=== PATIENT | female | born 1990 | race American Indian/Alaskan Native ===

== ENCOUNTER 2018-05-09 21:31 | Emergency (ER) | payer SELFPAY ==
[2018-05-09] MEDS ORDERED: NACL 0.9% 1000 ML 1,000 ML IV ONE (22:27)
[2018-05-09 23:06] LABS: Basophils % (Auto) 0.3 % (0.0-1.8); Eosinophils # (Auto) 0.1 K/mm3 (0.0-0.4); Eosinophils % (Auto) 0.7 % (0.0-4.3); Hematocrit 35.9 % (30.3-42.9); Hemoglobin 11.3 gm/dl (10.1-14.3); Lymphocytes # (Auto) 1.2 K/mm3 (1.2-5.4); Lymphocytes % (Auto) 14.4 % (13.4-35.0); Mean Corpuscular HGB Conc 31 % (30-34); Mean Corpuscular Volume 78 fl (79-97); Monocytes # (Auto) 0.6 K/mm3 (0.0-0.8); Monocytes % (Auto) 7.2 % (0.0-7.3); Platelet Count 324 K/mm3 (140-440); Red Blood Count 4.58 M/mm3 (3.65-5.03)
[2018-05-09 23:07] LABS: Mean Corpuscular Hemoglobin 25 pg (28-32)
[2018-05-09 23:24] LABS: Alanine Aminotransferase 13 units/L (7-56); Albumin 4.6 g/dL (3.9-5); BUN/Creatinine Ratio 25; Blood Urea Nitrogen 15 mg/dL (7-17); Calcium 9.6 mg/dL (8.4-10.2); Hemolysis Index 1
[2018-05-10] LABS: Bilirubin,Urine NEG (Negative); Blood,Urine SM (Negative); Color,Urine Yellow (Yellow); Mucus,Urine FEW /HPF; Protein,Urine <15 mg/dL mg/dL (Negative)
[2018-05-10 00:01] LABS: HCG Qualitative,Urine Negative (Negative); RBC,Urine < 1.0 /HPF (0.0-6.0)
[2018-05-10] MEDS ORDERED: NACL 0.9% 1000 ML 1,000 ML ONE (05:26)
[2018-05-10] MEDS ORDERED: SUBLIMAZE IV ONE (06:37)
--- NOTE | 2018-05-10 06:38 | Emergency Department Report ---
ED General Adult HPI - General Chief complaint: Pain General Stated complaint: FEVER,FLANK PAIN Time Seen by Provider: 05/10/18 06:29 Source: patient, RN notes reviewed Mode of arrival: Ambulatory Limitations: No Limitations - History of Present Illness Initial comments: This is a 27-year-old female who is not known to this provider previously. Patient visiting from [facility]. Reports a history of lupus. Reports she does not take any immune modulating medications. Patient reports a history of 12 or 13 lupus flares since August. Patient presents to the ER with what she describes as her typical lupus flare. She describes fever at home, for the past 3 days, reports a temperature max of 101.2, and describes lower paralumbar back pain, joint pain, and lower back pain. She denies severe headache, midline neck pain, chest pain, abdominal pain, dysuria. She has a dry cough, and a sore throat from coughing. She can't think of any obvious inciting factors for this particular lupus flare. She reports that this particular flare seems similar to prior episodes of lupus exacerbation. In the emergency room, the patient was given IV fluids, fentanyl, this improved her symptoms. -: Gradual, days(s) Location: back, left, right, upper extremity, lower extremity Radiation: back Severity scale (0 -10): 10 Quality: aching Improves with: medication Worsens with: movement Associated Symptoms: cough, fever/chills, loss of appetite, malaise, weakness. denies: confusion, chest pain, diaphoresis, headaches, nausea/vomiting, rash, seizure, shortness of breath, syncope - Related Data Previous Rx's Medication Instructions Recorded Last Taken Type Acetaminophen [Tylenol Arthritis] 650 mg PO Q6HR PRN #30 tablet.er 05/10/18 Unknown Rx Allergies Allergy/AdvReac Type Severity Reaction Status Date / Time clarithromycin [From Biaxin] Allergy Rash Verified 05/09/18 22:27 meloxicam [From Mobic] Allergy Rash Verified 05/09/18 22:27 walnut Allergy Swelling Verified 05/09/18 22:27 ice cream Allergy Swelling Uncoded 05/09/18 22:27 ED Review of Systems ROS: Stated complaint: FEVER,FLANK PAIN Other details as noted in HPI Comment: All other systems reviewed and negative ED Past Medical Hx - Past Medical History Previous Medical History?: Yes Additional medical history: Lupus. anemia - Surgical History Past Surgical History?: Yes Hx Cholecystectomy: Yes - Social History Smoking Status: Never Smoker Substance Use Type: None - Medications Home Medications: Home Medications Medication Instructions Recorded Confirmed Last Taken Type Acetaminophen [Tylenol Arthritis] 650 mg PO Q6HR PRN #30 tablet.er 05/10/18 Unknown Rx ED Physical Exam - General Limitations: No Limitations General appearance: alert, in no apparent distress - Head Head exam: Present: atraumatic, normocephalic - Eye Eye exam: Present: normal appearance, EOMI. Absent: nystagmus - ENT ENT exam: Present: normal exam, normal orophraynx, mucous membranes moist, normal external ear exam - Neck Neck exam: Present: normal inspection, full ROM. Absent: tenderness, meningismus - Respiratory Respiratory exam: Present: normal lung sounds bilaterally. Absent: respiratory distress - Cardiovascular Cardiovascular Exam: Present: regular rate, normal rhythm, normal heart sounds. Absent: bradycardia, tachycardia, irregular rhythm, systolic murmur, diastolic murmur, rubs, gallop - GI/Abdominal GI/Abdominal exam: Present: soft, normal bowel sounds. Absent: distended, guarding, rebound, rigid, pulsatile mass - Extremities Exam Extremities exam: Present: normal inspection, full ROM, normal capillary refill , other (2+ pulses noted in the bilateral upper, lower extremities. Compartments soft. No long bony tenderness. The pelvis is stable.). Absent: tenderness, pedal edema, joint swelling, calf tenderness - Back Exam Back exam: Present: normal inspection, full ROM, paraspinal tenderness. Absent : tenderness, CVA tenderness (R), CVA tenderness (L), vertebral tenderness - Neurological Exam Neurological exam: Present: alert, oriented X3, CN II-XII intact, normal gait, other (Extraocular movements intact. Tongue midline. No facial droop. Facial sensation intact to light touch in the V1, V2, V3 distribution bilaterally. 5 and 5 strength in 4 extremities.. Sensation is intact to light touch in 4 extremities.). Absent: motor sensory deficit - Psychiatric Psychiatric exam: Present: normal affect, normal mood - Skin Skin exam: Present: warm, dry, intact, normal color. Absent: rash ED Course Vital Signs 05/09/18 05/10/18 05/10/18 22:21 02:15 04:15 Temperature 99.6 F 98.3 F Pulse Rate 78 88 77 Respiratory 14 12 14 Rate Blood Pressure 117/73 113/77 Blood Pressure [Right] O2 Sat by Pulse 100 100 100 Oximetry 05/10/18 05/10/18 05/10/18 04:22 04:30 05:00 Temperature Pulse Rate 69 84 Respiratory 17 17 Rate Blood Pressure 109/79 111/64 Blood Pressure 111/70 [Right] O2 Sat by Pulse 99 100 Oximetry ED Medical Decision Making - Lab Data Result diagrams: 05/09/18 22:31 05/09/18 22:31 Vital Signs 05/09/18 05/10/18 05/10/18 22:21 02:15 04:15 Temperature 99.6 F 98.3 F Pulse Rate 78 88 77 Respiratory 14 12 14 Rate Blood Pressure 117/73 113/77 Blood Pressure [Right] O2 Sat by Pulse 100 100 100 Oximetry 05/10/18 05/10/18 05/10/18 04:22 04:30 05:00 Temperature Pulse Rate 69 84 Respiratory 17 17 Rate Blood Pressure 109/79 111/64 Blood Pressure 111/70 [Right] O2 Sat by Pulse 99 100 Oximetry 05/10/18 08:21 Temperature Pulse Rate Respiratory Rate Blood Pressure Blood Pressure [Right] O2 Sat by Pulse 98 Oximetry Lab Results 05/09/18 05/09/18 05/09/18 Range/Units 22:31 22:31 23:05 WBC 8.1 (4.5-11.0) K/mm3 RBC 4.58 (3.65-5.03) M/mm3 Hgb 11.3 (10.1-14.3) gm/dl Hct 35.9 (30.3-42.9) % MCV 78 L (79-97) fl MCH 25 L (28-32) pg MCHC 31 (30-34) % RDW 16.0 H (13.2-15.2) % Plt Count 324 (140-440) K/mm3 Lymph % (Auto) 14.4 (13.4-35.0) % [place] % (Auto) 7.2 (0.0-7.3) % Eos % (Auto) 0.7 (0.0-4.3) % Baso % (Auto) 0.3 (0.0-1.8) % Lymph # 1.2 (1.2-5.4) K/mm3 [place] # 0.6 (0.0-0.8) K/mm3 Eos # 0.1 (0.0-0.4) K/mm3 Baso # 0.0 (0.0-0.1) K/mm3 Seg Neutrophils % 77.4 H (40.0-70.0) % Seg Neutrophils # 6.2 (1.8-7.7) K/mm3 Sodium 134 L (137-145) mmol/L Potassium 4.6 (3.6-5.0) mmol/L Chloride 95.9 L (98-107) mmol/L Carbon Dioxide 23 (22-30) mmol/L Anion Gap 20 mmol/L BUN 15 (7-17) mg/dL Creatinine 0.6 L (0.7-1.2) mg/dL Estimated GFR > 60 ml/min BUN/Creatinine Ratio 25 % Glucose 68 (65-100) mg/dL Calcium 9.6 (8.4-10.2) mg/dL Total Bilirubin 0.40 (0.1-1.2) mg/dL AST 20 (5-40) units/L ALT 13 (7-56) units/L Alkaline Phosphatase 64 (35-129) units/L Total Creatine Kinase 156 H (30-135) units/L Total Protein 7.4 (6.3-8.2) g/dL Albumin 4.6 (3.9-5) g/dL Albumin/Globulin Ratio 1.6 % Urine Color Yellow (Yellow) Urine Turbidity Clear (Clear) Urine pH 5.0 (5.0-7.0) Ur Specific [place] 1.023 (1.003-1.030) Urine Protein <15 mg/dl (Negative) mg/dL Urine Glucose (UA) Neg (Negative) mg/dL Urine Ketones 80 (Negative) mg/dL Urine Blood Sm (Negative) Urine Nitrite Neg (Negative) Urine Bilirubin Neg (Negative) Urine Urobilinogen 2.0 (<2.0) mg/dL Ur Leukocyte Esterase Neg (Negative) Urine WBC (Auto) 1.0 (0.0-6.0) /HPF Urine RBC (Auto) < 1.0 (0.0-6.0) /HPF U Epithel Cells (Auto) 1.0 (0-13.0) /HPF Urine Mucus Few /HPF Urine HCG, Qual Negative (Negative) - Radiology Data Radiology results: report reviewed, image reviewed X-ray of the chest is negative for acute disease - Medical Decision Making Differential diagnosis, including but not limited to: Lupus flare, lupus exacerbation, pneumonia, urinary tract infection, viral syndrome Assessment and plan: 27-year-old female who is not on immunosuppressive therapy with a history of lupus, who reports myalgias, muscular back pain and fevers at home. Patient has been observed in the ER for many hours without clinical decompensation. Objectively speaking, hemoglobin, hematocrit appropriate and within normal limits, did not require packed red blood cell transfusion, has no CVA tenderness, urinalysis and x-ray of the chest did not suggest bacterial etiology, patient given IV fluids and pain medication and feels improved. Muscular compartments are soft, has full range of motion of large joints, with no redness, pus or streaking. Does not have any objectively demonstrated medical condition that requires hospitalization at this time, the patient is medically suitable to follow-up with an outpatient customer service assistant. Critical care attestation.: If time is entered above; I have spent that time in minutes in the direct care of this critically ill patient, excluding procedure time. ED Disposition Clinical Impression: History of lupus Disposition: DC-01 TO HOME OR SELFCARE Is pt being admited?: No Does the pt Need Aspirin: No Condition: Stable Additional Instructions: Rest, and avoid heavy lifting. Avoid strenuous physical activities. Take the pain medication as needed/directed. Follow up with a primary care doctor or customer service assistant within the next 7-10 days. Return to the ER right away with new pain, worsened pain, migration of pain, projectile vomiting, change in mental status, confusion, inability to tolerate liquid feedings. Referrals: [facility] [Provider Group] - 3-5 Days
[2018-05-10] MEDS ORDERED: D5/0.45NS 1,000 ML IV SCH (07:00)
--- NOTE | 2018-05-10 07:05 | XRay Report ---
FINAL REPORT EXAM: XR CHEST ROUTINE 2V HISTORY: fever cough lupus flare TECHNIQUE: PA and lateral views of the chest were submitted. FINDINGS: The lungs are clear. The heart size and vascularity appear normal. Pleural fluid is not seen. The bones and soft tissues are well maintained. There are surgical clips in the right upper quadrant of the abdomen. IMPRESSION: No acute cardiopulmonary process.
[2018-05-10 08:36] VITALS: BP 121/67
== END 2018-05-10 09:25 | disposition home or self-care (01) ==
LOC: ED 21:31
DX: M32.9 Systemic lupus erythematosus, unspecified (principal); M54.5 Low back pain; Z87.39 Personal history of other diseases of the musculoskeletal system and connective tissue; D64.9 Anemia, unspecified; Z90.89 Acquired absence of other organs; Z88.1 Allergy status to other antibiotic agents; Z91.010 Allergy to peanuts; Z88.6 Allergy status to analgesic agent; Z91.018 Allergy to other foods
CPT/HCPCS: 36415; 71046; 80053; 81001; 81025; 82550; 85025; 99283; J3010; J7030; 96374; 99284